=== PATIENT | female | born 1995 ===

== ENCOUNTER 2020-07-13 18:06 | Emergency (ER) | payer SELFPAY ==
[~2020-07-13] VITALS: Ht 154.9 cm; Wt 63.6 kg
[2020-07-13 20:00] VITALS: BP 119/84
[2020-07-13] MEDS ORDERED: LIDOCAINE/PF 1% 2 ML VIAL IM ONE (20:30)
[2020-07-13] MEDS ORDERED: IBUPROFEN 600 MG TABLET PO ONE (20:30)
[2020-07-13] MEDS ORDERED: CefTRIAXone SODIUM 1 GM/VIAL IM ONE (20:30)
== END 2020-07-13 22:31 | disposition home or self-care (01) ==
LOC: EMS 18:06
DX: J03.90 Acute tonsillitis, unspecified (principal)
CPT/HCPCS: 87430; 96372; 99283; J0696; J3490